=== PATIENT | male | born 1945 | race Caucasian/White ===

== ENCOUNTER 2018-07-07 10:28 | Day surgery (SDC) | payer MEDICARE, BC ==
[2018-07-07] MEDS ORDERED: Sodium Chloride 0.9% 10 ML Syringe FLUSH PRN (11:00)
[2018-07-07] MEDS ORDERED: Lactated Ringers 1,000 ML IV SCH (11:00)
[2018-07-07] MEDS ORDERED: Propofol 200 MG/20 ML SDV ONE (11:19)
[2018-07-07] MEDS ORDERED: Midazolam 1 MG/ML 2 ML SDV ONE (11:19)
[2018-07-07] MEDS ORDERED: Propofol 200 MG/20 ML SDV IV ONE (12:19)
[2018-07-07] MEDS ORDERED: Midazolam 1 MG/ML 2 ML SDV IV ONE (12:19)
--- NOTE | 2018-07-07 12:20 | PCM.PN ---
- General Info Date of Service: 07/07/18 - Review of Systems Systems Review Comment:: 73-year-old male referred for colonoscopy. He has a history of colon polyps. He is medically stable to proceed today. His recent history and physical is reviewed and no significant changes are noted. I discussed the proposed colonoscopy with the patient. Risks such as but not limited to bleeding and GI injury reviewed. He appears to understand and agrees to proceed. - Patient Data Vitals - Most Recent: Last Vital Signs Temp 97.8 F 07/07/18 11:00 Pulse 62 07/07/18 11:00 Resp 18 07/07/18 11:00 BP 118/74 07/07/18 11:00 Pulse Ox 97 07/07/18 11:00 Weight - Most Recent: 117.934 kg Med Orders - Current: Current Medications Lactated Ringer's (Ringers, Lactated) 1,000 mls @ 50 mls/hr IV ASDIRECTED ROBERTA Last Admin: 07/07/18 11:12 Dose: 50 mls/hr Sodium Chloride (Saline Flush) 10 ml FLUSH Q8HR PRN PRN Reason: keep vein open - Problem List Review Problem List Initiated/Reviewed/Updated: Yes - My Orders Last 24 Hours: My Active Orders 07/07/18 11:00 Peripheral IV Care [RC] . DIRECTED Vital Signs [RC] PER UNIT ROUTINE Lactated Ringers [Ringers, Lactated] 1,000 ml IV ASDIRECTED Sodium Chloride 0.9% [Saline Flush] 10 ml FLUSH Q8HR PRN Peripheral IV Insertion Adult [OM.PC] Routine 07/07/18 11:30 Patient to Empty Bladder [RC] ASDIRECTED 07/07/18 12:15 Verify Patient Consent Obtain [RC] ASDIRECTED 07/07/18 Breakfast Nothing Per Oral Diet [DIET] - Assessment Assessment:: History of colon polyps - Plan Plan:: Colonoscopy
--- NOTE | 2018-07-07 12:56 | PCM.OPNOTE ---
- General Post-Op/Procedure Note Date of Surgery/Procedure: 07/07/18 Operative Procedure(s): Colonoscopy with Polypectomy Findings: Moderate Sigmoid Diverticulosis 6 mm Sigmoid Colon Polyp Pre Op Diagnosis: History of Colon Polyps Post-Op Diagnosis: Sigmoid Diverticulosis. Colon Polyp Anesthesia Technique: MAC Primary Surgeon: Tobias Olivas Pathology: Sigmoid Colon Polyp Output, Urine Amount: 0 EBL in mLs: 0 Complications: None Condition: Good
--- NOTE | 2018-07-07 14:36 | OR ---
DATE OF SURGERY: 07/07/2018 SURGEON: Tobias Olivas MD PREOPERATIVE DIAGNOSIS: History of colon polyps. POSTOPERATIVE DIAGNOSIS: Colon polyp and sigmoid diverticulosis. OPERATION PERFORMED: Colonoscopy with polypectomy. INDICATIONS FOR SURGERY: This 73-year-old male has a history of colon polyps and was seen today for surveillance colonoscopy. FINDINGS: A single polyp was noted on today's exam, it is a 6 mm sessile polyp noted in the sigmoid colon 25 cm from the anal verge. In the sigmoid colon, the patient also has a moderate degree of sigmoid diverticulosis. The remainder of the colon appears normal. DESCRIPTION OF PROCEDURE: The patient was taken to the operating room. He was given intravenous sedation, and with him in the left lateral decubitus position, digital rectal exam was performed showing no rectal masses. The Olympus colonoscope was inserted into the rectum. Retroflexed examination of the rectal canal was performed. The scope was then carefully advanced under direct visualization through the entire length of the colon until the cecum was reached. This colon was somewhat tortuous, and hand pressure was required to reach the cecum, but it was eventually able to be safely accessed and viewed. The ileocecal valve and appendiceal orifice were examined and the light was also noted to transilluminate the abdominal wall in the right lower quadrant. After examining the cecum, the scope was slowly withdrawn, sequentially re-examining the colonic segments. In the sigmoid colon, the above-described polyp was identified. This was removed with a cautery snare and retrieved into a polyp trap. Careful examination showed no sign of complication. The examination was completed and the scope was removed. The patient was taken from the operating room in satisfactory condition. ESTIMATED BLOOD LOSS: Zero. COMPLICATIONS: None. PROGNOSIS: Good. /[id number]/MODL
== END 2018-07-07 14:10 | disposition home or self-care (01) ==
LOC: KA.SDS 10:28
PROVIDERS: ATTEND Surgery
DX: Z12.11 Encounter for screening for malignant neoplasm of colon (principal); K63.5 Polyp of colon; K57.30 Diverticulosis of large intestine without perforation or abscess without bleeding; I11.0 Hypertensive heart disease with heart failure; I50.9 Heart failure, unspecified; E78.00 Pure hypercholesterolemia, unspecified; E55.9 Vitamin D deficiency, unspecified; G47.30 Sleep apnea, unspecified; Z86.010 Personal history of colon polyps; Z79.82 Long term (current) use of aspirin; Z79.899 Other long term (current) drug therapy; Z95.1 Presence of aortocoronary bypass graft
CPT/HCPCS: 45385; J2250; J2704; J7120; 00812

== ENCOUNTER 2020-09-03 11:27 | Emergency (ER) | payer MEDICARE, BC ==
--- NOTE | 2020-09-03 12:19 | EDM.PDOC ---
ED HPI GENERAL MEDICAL PROBLEM - General Chief Complaint: Eye Problems Stated Complaint: FACIAL INJURY Time Seen by Provider: 09/03/20 11:49 Source of Information: Reports: Patient, Significant Other History Limitations: Reports: No Limitations - History of Present Illness INITIAL COMMENTS - FREE TEXT/NARRATIVE: Patient presents with scratches on his left cheek and swelling below left eye. This happened approximately 24 hours ago when he fell and hit his face on a tree stump while pulling wire and repairing fence. He denies LOC, vision change, vomiting, balance problem. He is concerned about the swelling below his eye and wonders if it should be drained. - Related Data Allergies Allergy/AdvReac Type Severity Reaction Status Date / Time No Known Drug Allergies Allergy Other Verified 07/07/18 10:47 Home Meds: Home Meds Aspirin 325 mg PO DAILY 07/05/18 [History] Krill Oil 500 mg PO DAILY 07/05/18 [History] Metoprolol Tartrate 25 mg PO BID 07/05/18 [History] Multivitamin [Multivitamins] 1 cap PO DAILY 07/05/18 [History] Potassium Gluconate [Potassium] 595 mg PO DAILY 07/05/18 [History] Simvastatin 10 mg PO BEDTIME 07/05/18 [History] Valsartan/Hydrochlorothiazide [Valsartan-Hctz 80-12.5 mg Tab] 1 tab PO DAILY 07/05/18 [History] Past Medical History HEENT History: Reports: None Cardiovascular History: Reports: High Cholesterol, Hypertension Respiratory History: Reports: Sleep Apnea Gastrointestinal History: Reports: Colon Polyp Genitourinary History: Reports: None Musculoskeletal History: Reports: Amputation, Other (See Below) Other Musculoskeletal History: Right pointer finger Neurological History: Reports: None Psychiatric History: Reports: None Endocrine/Metabolic History: Reports: None Hematologic History: Reports: None Immunologic History: Reports: None Oncologic (Cancer) History: Reports: Other (See Below) Other Oncologic History: Skin cancer diagnosed Mar 2018 Dermatologic History: Reports: None - Infectious Disease History Infectious Disease History: Reports: Chicken Pox, Measles, Mumps - Past Surgical History HEENT Surgical History: Reports: Tonsillectomy Cardiovascular Surgical History: Reports: Coronary Artery Bypass Respiratory Surgical History: Reports: None GI Surgical History: Reports: Colonoscopy Male Surgical History: Reports: None Endocrine Surgical History: Reports: None Neurological Surgical History: Reports: None Dermatological Surgical History: Reports: None Social & Family History - Family History Family Medical History: No Pertinent Family History - Tobacco Use Tobacco Use Status *Q: Never Tobacco User - Caffeine Use Caffeine Use: Reports: None - Recreational Drug Use Recreational Drug Use: No ED ROS GENERAL - Review of Systems Review Of Systems: See Below Constitutional: Denies: Fever, Chills, Malaise, Weakness, Fatigue HEENT: Denies: Ear Discharge, Ear Pain, Eye Discharge, Eye Pain, Throat Pain, Vertigo, Vision Change Respiratory: Denies: Shortness of Breath, Cough Cardiovascular: Denies: Chest Pain, Lightheadedness, Syncope GI/Abdominal: Denies: Abdominal Pain, Diarrhea, Vomiting : Denies: Dysuria, Flank Pain Musculoskeletal: Denies: Neck Pain, Shoulder Pain, Arm Pain, Back Pain, Hand Pain, Leg Pain Skin: Denies: Cyanosis, Jaundice, Mottled, Pallor, Diaphoresis Neurological: Denies: Confusion, Dizziness, Seizure, Trouble Speaking, Difficulty Walking Psychiatric: Denies: Agitation, Anxiety, Confusion ED EXAM GENERAL W FULL EYE - Physical Exam Exam: See Below Exam Limited By: No Limitations General Appearance: Alert, WD/WN, No Apparent Distress Eye Exam: Bilateral Eye: EOMI, Normal Inspection, PERRL Eyelids: Right: Normal Appearance, Left: Edema (just lower eyelid but doesn't restrict lid function; eye is not swollen closed even partially), Ecchymosis Conjunctiva & Sclera: Bilateral: Normal Appearance Cornea Exam: Bilateral: Normal Appearance Extraocular Movements: Bilateral: Intact Pupils: Normal Accommodation Ears: Normal External Exam, Normal Canal (except significant cerumen L>R), Hearing Grossly Normal (at baseline which is significant loss), Normal TMs Nose: Normal Inspection, No Blood Throat/Mouth: Normal Inspection, Normal Lips, Normal Oropharynx, Normal Voice, No Airway Compromise Head: Facial Swelling (left lower eyelid/upper cheek has significant edema and ecchymosis; there is a superficial cut/scrape of left anterior cheek that is scabbed and not inflamed; lateral cheek has abrasion/scratches that are very superficial.) Neck: Normal Inspection, Non-Tender, Full Range of Motion Respiratory/Chest: No Respiratory Distress, Lungs Clear, Normal Breath Sounds Cardiovascular: Regular Rate, Rhythm, No Murmur Back Exam: Normal Inspection, Full Range of Motion. No: CVA Tenderness (L), CVA Tenderness (R) Extremities: Normal Inspection, Normal Range of Motion, Non-Tender Neurological: Alert, Oriented, CN II-XII Intact, Normal Cognition, Normal Gait, No Motor/Sensory Deficits Psychiatric: Normal Affect, Normal Mood Skin Exam: Warm, Dry, Intact, Normal Color, No Rash Course - Vital Signs Last Recorded V/S: Last Vital Signs Temp 98.3 F 09/03/20 11:56 Pulse 71 09/03/20 11:56 Resp 16 09/03/20 11:56 BP 109/70 09/03/20 11:56 Pulse Ox 96 09/03/20 11:56 - Re-Assessments/Exams Free Text/Narrative Re-Assessment/Exam: 09/03/20 12:29 We discussed findings and expectations. Patient will use ice pack for swelling. I assured patient that the swelling is okay and should not be drained as that would cause a risk of infection and not provide any benefit. Discussed signs of brain injury and to return immediately if develops. Tetanus booster was confirmed in 2019. Discharged to home in stable condition. Departure - Departure Time of Disposition: 12:14 Disposition: Home, Self-Care 01 Condition: Good Clinical Impression: Contusion of face Qualifiers: Encounter type: initial encounter Qualified Code(s): S00.83XA - Contusion of other part of head, initial encounter - Discharge Information Referrals: Erin Munguia MD [Primary Care Provider] - Additional Instructions: Apply ice pack wrapped in towel 2-4 times a day for 3-4 days to help control swelling. Recheck CARLINE with PCP or return to ER if worsening. Sepsis Event Note (ED) - Evaluation Sepsis Screening Result: No Definite Risk - Focused Exam Vital Signs: Vital Signs Temp Pulse Resp BP Pulse Ox 09/03/20 11:56 98.3 F 71 16 109/70 96
== END 2020-09-03 12:30 | disposition home or self-care (01) ==
LOC: KA.ED 11:27
DX: S00.83XA Contusion of other part of head, initial encounter (principal); E78.00 Pure hypercholesterolemia, unspecified; I10 Essential (primary) hypertension; Z79.899 Other long term (current) drug therapy; W18.09XA Striking against other object with subsequent fall, initial encounter
CPT/HCPCS: 99283